=== PATIENT | male | born 1940 | race Caucasian/White ===

== ENCOUNTER 2017-03-31 09:19 | Emergency (ER) | payer MEDICARE ==
--- NOTE | 2017-03-31 10:15 | EDM.PDOC ---
ED HPI GENERAL MEDICAL PROBLEM - General Chief Complaint: Respiratory Problem Stated Complaint: COUGH/CHEST, NECK PAIN Time Seen by Provider: 03/31/17 09:55 Source of Information: Reports: Patient History Limitations: Reports: No Limitations - History of Present Illness INITIAL COMMENTS - FREE TEXT/NARRATIVE: 76-year-old male with a history of prostatic cancer has had a worsening cough, chest pain with coughing, starting to become productive with a small amount of hemoptysis over the past several days. Last night it hurt so bad he had trouble sleeping. He feels somewhat better this morning but it still hurts to breathe. He does not feel short of breath, no significant fevers, denies diaphoresis. The pain at times radiates to both posterior shoulders. Denies nausea or vomiting. He did not obtain an influenza vaccination this year. Onset: Gradual (Over the past several days) Quality: Reports: Ache, Stabbing Severity: Moderate Worsens with: Reports: Breathing, Other Associated Symptoms: Reports: Chest Pain, Cough, Other (Developed some hemoptysis this morning). Denies: Headaches, Shortness of Breath Anterior Chest Pain Score (Numeric/FACES): 6 - Related Data Allergies Allergy/AdvReac Type Severity Reaction Status Date / Time cimetidine [From Tagamet] Allergy Cannot Verified 03/31/17 09:35 Remember cimetidine HCl [From Tagamet] Allergy Cannot Verified 03/31/17 09:35 Remember Sulfa (Sulfonamide Allergy Swelling Verified 03/31/17 09:35 Antibiotics) sulfadiazine [Sulfadiazine] Allergy Cannot Verified 03/31/17 09:35 Remember Home Meds: Home Meds Blood Sugar Diagnostic [Contour] 1 strip WEEKLY 11/07/14 [History] Triamterene/Hydrochlorothiazid [Triamterene-HCTZ 37.5-25 MG] 1 dose PO DAILY [History] Calcium Carbonate [Calcium] 500 mg PO DAILY 03/31/17 [History] Cyanocobalamin (Vitamin B-12) [Vitamin B-12] 2,000 mcg PO DAILY 03/31/17 [ History] Enzalutamide [Xtandi] 4 tab PO BEDTIME 03/31/17 [History] Gabapentin [Neurontin] 100 mg PO TID 03/31/17 [History] atorvaSTATin [Lipitor] 20 mg PO BEDTIME 03/31/17 [History] oxyCODONE HCl/Acetaminophen [Percocet 5-325 mg Tablet] 1 - 2 tab PO Q6H [History] Past Medical History HEENT History: Reports: Cataract, Hard of Hearing, Impaired Vision Cardiovascular History: Reports: Afib, High Cholesterol, Hypertension Respiratory History: Reports: Other (See Below) Other Respiratory History: hx pnuemonia Gastrointestinal History: Reports: Other (See Below) Other Gastrointestinal History: reflux Genitourinary History: Reports: Other (See Below) Other Genitourinary History: prostate CA Musculoskeletal History: Reports: Back Pain, Chronic, Fracture Other Musculoskeletal History: fx l leg and wrist Endocrine/Metabolic History: Reports: Diabetes, Type II Oncologic (Cancer) History: Reports: Prostate - Infectious Disease History Infectious Disease History: Reports: Chicken Pox, Measles, Mumps, Shingles, Other (See Below) Other Infectious Disease History: Lymes disease - Past Surgical History GI Surgical History: Reports: Colostomy Social & Family History - Tobacco Use Smoking Status *Q: Never Smoker Second Hand Smoke Exposure: No - Caffeine Use Caffeine Use: Reports: Coffee, Tea - Recreational Drug Use Recreational Drug Use: No ED ROS GENERAL - Review of Systems Review Of Systems: See Below Constitutional: Reports: Chills. Denies: Fever HEENT: Denies: Throat Pain Respiratory: Reports: Cough, Sputum, Hemoptysis. Denies: Shortness of Breath Cardiovascular: Reports: Chest Pain GI/Abdominal: Denies: Abdominal Pain, Nausea, Vomiting : Reports: Other (History of prostate cancer but no current symptoms) Neurological: Denies: Headache Psychiatric: Reports: No Symptoms ED EXAM, GENERAL - Physical Exam Exam: See Below Exam Limited By: No Limitations General Appearance: Alert, No Apparent Distress Head: Atraumatic Neck: Normal Inspection Respiratory/Chest: No Respiratory Distress, Lungs Clear Cardiovascular: Regular Rate, Rhythm Neurological: Alert, Oriented Psychiatric: Normal Affect, Normal Mood Skin Exam: Warm, Dry Course - Vital Signs Last Recorded V/S: Last Vital Signs Temp 96.8 F 03/31/17 10:30 Pulse 72 03/31/17 10:30 Resp 18 03/31/17 10:30 BP 172/82 H 03/31/17 10:30 Pulse Ox 96 03/31/17 10:30 - Orders/Labs/Meds Orders: Active Orders 24 hr Category Date Time Status Chest 2V [CR] Routine Exams 03/31/17 10:10 Taken Labs: Laboratory Tests 03/31/17 03/31/17 Range/Units 10:22 10:22 WBC 4.0 L (4.5-11.0) K/uL RBC 4.77 (4.30-5.90) M/uL Hgb 15.0 (12.0-15.0) g/dL Hct 42.1 (40.0-54.0) % MCV 88 (80-98) fL MCH 31 (27-31) pg MCHC 36 (32-36) % Plt Count 110 L (150-400) K/uL Neut % (Auto) 73 H (36-66) % Lymph % (Auto) 11 L (24-44) % [place] % (Auto) 16 H (2-6) % Eos % (Auto) 0 L (2-4) % Baso % (Auto) 0 (0-1) % Sodium 138 L (140-148) mmol/L Potassium 3.7 (3.6-5.2) mmol/L Chloride 98 L (100-108) mmol/L Carbon Dioxide 31 (21-32) mmol/L Anion Gap 12.7 (5.0-14.0) mmol/L BUN 17 (7-18) mg/dL Creatinine 1.3 (0.8-1.3) mg/dL Est Cr Clr Drug Dosing 40.74 mL/min Estimated GFR (MDRD) 53 L (>60) Glucose 135 H (74-106) mg/dL Calcium 9.1 (8.5-10.1) mg/dL Troponin I 0.021 (0.000-0.056) ng/mL - Re-Assessments/Exams Free Text/Narrative Re-Assessment/Exam: 03/31/17 10:14 Influenza antigens, a two-view chest x-ray, CBC BMP and troponin were obtained. 03/31/17 10:43 Two-view chest x-ray shows no infiltrate, CBC shows a white count of 4000 and influenza A is positive. Patient already has OxyContin for pain but he is not taking any until his pain starts, so I encouraged him to take a dose before bedtime. It's too late to start Tamiflu. He can return if worsening such as increasing shortness of breath. 01/06/18 10:54 Chemistry panel and troponin were reassuring, troponin was normal. Departure - Departure Time of Disposition: 11:17 Disposition: Home, Self-Care 01 Condition: Good Clinical Impression: Influenza - Discharge Information Instructions: Influenza, Adult, [id number] Referrals: Nitin Arguello MD [Primary Care Provider] - Forms: ED Department Discharge Care Plan Goals: Continue your current medications, try your pain medication before bedtime and increase activity as tolerated. Return if worsening, especially difficulty breathing. Also consider rechecking in 3-4 days if not improving satisfactorily. - My Orders Last 24 Hours: My Active Orders 03/31/17 10:10 Chest 2V [CR] Routine - Assessment/Plan Last 24 Hours: My Active Orders 03/31/17 10:10 Chest 2V [CR] Routine
[2017-03-31 11:16] VITALS: BP 172/82
--- NOTE | 2017-04-02 09:52 | CR ---
Chest 2V HISTORY: Dyspnea COMPARISON: CT scan chest 01/12/2017. FINDINGS: Cardiac size and pulmonary vessels normal. There are no infiltrates or effusions. No pneumo thorax. Moderate kyphosis and degenerative change within the thoracic spine.
== END 2017-03-31 11:21 | disposition home or self-care (01) ==
LOC: JP.ED 09:19
DX: J10.1 Influenza due to other identified influenza virus with other respiratory manifestations (principal); I10 Essential (primary) hypertension; E78.00 Pure hypercholesterolemia, unspecified; E11.9 Type 2 diabetes mellitus without complications; Z88.2 Allergy status to sulfonamides; Z79.899 Other long term (current) drug therapy
CPT/HCPCS: 36415; 71046; 71046-26; 80048; 84484; 85025; 87804; 99283; 99284

== ENCOUNTER 2017-04-23 11:02 | Emergency (ER) | payer MEDICARE ==
[2017-04-23 11:17] VITALS: BP 151/82
--- NOTE | 2017-04-23 12:29 | EDM.PDOC ---
ED HPI GENERAL MEDICAL PROBLEM - General Chief Complaint: General Stated Complaint: DIRECT ADMIT FROM CLINIC Time Seen by Provider: 04/23/17 11:40 Source of Information: Reports: Patient, RN, RN Notes Reviewed History Limitations: Reports: No Limitations - History of Present Illness INITIAL COMMENTS - FREE TEXT/NARRATIVE: 76-year-old gentleman presents to the emergency department today for further evaluation, he has a known history of prostate cancer is currently receiving infusion of ZARXIO he received his first infusion today he did have some vague abdominal pain with this blood work was drawn at the same time which revealed a total WBC of 0.6 neutrophil 8%. Because of the extremely low neutrophil count oncology is asked for further evaluation in the emergency department he was sent here for further evaluation he did receive Neupogen prior to departure. At this time he feels all the symptoms have resolved he has no complaints has not had any fevers - Related Data Allergies Allergy/AdvReac Type Severity Reaction Status Date / Time cimetidine [From Tagamet] Allergy Cannot Verified 03/31/17 09:35 Remember cimetidine HCl [From Tagamet] Allergy Cannot Verified 03/31/17 09:35 Remember Sulfa (Sulfonamide Allergy Swelling Verified 03/31/17 09:35 Antibiotics) sulfadiazine [Sulfadiazine] Allergy Cannot Verified 03/31/17 09:35 Remember Home Meds: Home Meds Blood Sugar Diagnostic [Contour] 1 strip WEEKLY 11/07/14 [History] Triamterene/Hydrochlorothiazid [Triamterene-HCTZ 37.5-25 MG] 1 dose PO DAILY [History] Calcium Carbonate [Calcium] 500 mg PO DAILY 03/31/17 [History] Cyanocobalamin (Vitamin B-12) [Vitamin B-12] 2,000 mcg PO DAILY 03/31/17 [ History] Enzalutamide [Xtandi] 4 tab PO BEDTIME 03/31/17 [History] Gabapentin [Neurontin] 100 mg PO TID 03/31/17 [History] atorvaSTATin [Lipitor] 20 mg PO BEDTIME 03/31/17 [History] oxyCODONE HCl/Acetaminophen [Percocet 5-325 mg Tablet] 1 - 2 tab PO Q6H [History] Leuprolide [Leuprolide Depot 6-Month] 45 mg 04/23/17 [History] Past Medical History HEENT History: Reports: Cataract, Hard of Hearing, Impaired Vision Cardiovascular History: Reports: Afib, High Cholesterol, Hypertension Respiratory History: Reports: Other (See Below) Other Respiratory History: hx pnuemonia Gastrointestinal History: Reports: Other (See Below) Other Gastrointestinal History: reflux Genitourinary History: Reports: Other (See Below) Other Genitourinary History: prostate CA Musculoskeletal History: Reports: Back Pain, Chronic, Fracture Other Musculoskeletal History: fx l leg and wrist Endocrine/Metabolic History: Reports: Diabetes, Type II Oncologic (Cancer) History: Reports: Prostate - Infectious Disease History Infectious Disease History: Reports: Chicken Pox, Measles, Mumps, Shingles, Other (See Below) Other Infectious Disease History: Lymes disease - Past Surgical History GI Surgical History: Reports: Colostomy Social & Family History - Tobacco Use Smoking Status *Q: Never Smoker Second Hand Smoke Exposure: No - Caffeine Use Caffeine Use: Reports: Coffee - Recreational Drug Use Recreational Drug Use: No ED ROS GENERAL - Review of Systems Review Of Systems: See Below Constitutional: Denies: Fever, Chills HEENT: Reports: No Symptoms Respiratory: Reports: No Symptoms Cardiovascular: Reports: No Symptoms GI/Abdominal: Reports: Abdominal Pain (Now resolved) : Reports: No Symptoms Musculoskeletal: Reports: No Symptoms Skin: Reports: No Symptoms ED EXAM, GENERAL - Physical Exam Exam: See Below Free Text/Narrative:: General: Male, not in any distress, alert and oriented x3 HEENT: head is atraumatic normocephalic, eyes pupils equal round reactive to light, sclera clear no conjunctivitis appreciated. Ears tympanic membranes clear and murcia landmarks and light reflex are present bilaterally canals are clear. Nose no septal deviation, nares are clear, no blood present. Mouth mucosa is moist and pink no erythema or exudate noted in soft palate, tongue is midline uvula is midline, dentition is intact. Neck: Supple no thyromegaly no tracheal deviation. Nodes: Cervical nodes subclavicular nodes nontender no palpable lymphadenopathy noted. Lungs: clear to auscultation bilaterally with symmetrical respirations, no adventitious noise appreciated. CV: Regular rate and rhythm S1 and S2 appreciated no murmurs rubs or gallops noted. Abdomen: Soft, nontender, no palpable masses or organomegaly appreciated, no distention no guarding bowel sounds are present, . Neuro: Cranial nerves II through XII grossly intact Skin: Warm and dry, intact Extremities: No lower extremity edema appreciated, Course - Vital Signs Last Recorded V/S: Last Vital Signs Temp 98.7 F 04/23/17 11:17 Pulse 117 H 04/23/17 11:17 Resp 18 04/23/17 11:17 BP 151/82 H 04/23/17 11:17 Pulse Ox 96 04/23/17 11:17 Departure - Departure Time of Disposition: 12:28 Disposition: Home, Self-Care 01 Condition: Fair Clinical Impression: Neutropenia Qualifiers: Neutropenia type: secondary to cancer chemotherapy Qualified Code(s): D70.1 - Agranulocytosis secondary to cancer chemotherapy; T45.1X5A - Adverse effect of antineoplastic and immunosuppressive drugs, initial encounter; T45.1X5A - Adverse effect of antineoplastic and immunosuppressive drugs, initial encounter - Discharge Information Referrals: Nitin Arguello MD [Primary Care Provider] - Additional Instructions: Please keep your follow-up appointments with oncology, please return to the emergency department with a fever or worsening of symptoms - Assessment/Plan Plan: Assessment Acuity = acute Site and laterality = neutropenia complicated patient with known history of prostate cancer Etiology = probably related to ongoing disease and chemotherapy Manifestations = none Location of injury = Home Lab values = none Plan I did review his lab work from the clinic with him today he has no complaints, discussed case with hospitalist felt it is better to do watchful waiting at home to reduce the risk of infection rather than being in the hospital as well as exposure to antibiotics without fever therefore plan is to discharge to home keep his follow-up appointment with oncology. This note was dictated using [employer] voice recognition software please call with any questions on syntax or ho.
== END 2017-04-23 12:43 | disposition home or self-care (01) ==
LOC: JP.ED 11:02
DX: D70.1 Agranulocytosis secondary to cancer chemotherapy (principal); T45.1X5A Adverse effect of antineoplastic and immunosuppressive drugs, initial encounter; I10 Essential (primary) hypertension; E11.9 Type 2 diabetes mellitus without complications; E78.00 Pure hypercholesterolemia, unspecified; I48.91 Unspecified atrial fibrillation; Z88.2 Allergy status to sulfonamides; Z88.8 Allergy status to other drugs, medicaments and biological substances; Z79.899 Other long term (current) drug therapy
CPT/HCPCS: 99284

== ENCOUNTER 2018-08-06 19:48 | Emergency (ER) | payer MEDICARE ==
[2018-08-06] MEDS ORDERED: Ondansetron 4 MG/2 ML SDV IVPUSH ONE (20:56)
--- NOTE | 2018-08-06 20:57 | EDM.PDOC ---
ED HPI GENERAL MEDICAL PROBLEM - General Chief Complaint: Gastrointestinal Problem Stated Complaint: ABD PAIN Time Seen by Provider: 08/06/18 20:55 Source of Information: Reports: Patient History Limitations: Reports: No Limitations - History of Present Illness INITIAL COMMENTS - FREE TEXT/NARRATIVE: pt arrived stating he has been ill for the past 3 days. He has had normal bms. He notices that his urine is very dark. He has pain in the lower abdoman, more on the rt . Onset: Other (started 3 days ago. ) Duration: Hour(s): Location: Reports: Abdomen Associated Symptoms: Reports: Loss of Appetite, Nausea/Vomiting Treatments TELEVISION CAMERAMAN: Reports: Cervical Collar lower abd Pain Score (Numeric/FACES): 10 - Related Data Allergies Allergy/AdvReac Type Severity Reaction Status Date / Time cimetidine [From Tagamet] Allergy Cannot Verified 08/06/18 20:10 Remember cimetidine HCl [From Tagamet] Allergy Cannot Verified 08/06/18 20:10 Remember Sulfa (Sulfonamide Allergy Swelling Verified 08/06/18 20:10 Antibiotics) sulfadiazine [Sulfadiazine] Allergy Cannot Verified 08/06/18 20:10 Remember Home Meds: Home Meds oxyCODONE HCl/Acetaminophen [Percocet 5-325 mg Tablet] 1 - 2 tab PO Q6H [History] Leuprolide [Leuprolide Depot 6-Month] 45 mg IM Q180D 04/23/17 [History] Pantoprazole Sodium [Protonix] 20 mg PO DAILY 08/06/18 [History] Triamterene/Hydrochlorothiazid [Triamterene-HCTZ 37.5-25 MG] 1 each PO DAILY [History] predniSONE [Prednisone] 1 tab PO DAILY 08/06/18 [History] Past Medical History HEENT History: Reports: Cataract, Hard of Hearing, Impaired Vision Cardiovascular History: Reports: Afib, High Cholesterol, Hypertension Respiratory History: Reports: Other (See Below) Other Respiratory History: hx pnuemonia Gastrointestinal History: Reports: GERD Other Gastrointestinal History: reflux Genitourinary History: Reports: Prostate Disorder, Renal Calculus Other Genitourinary History: prostate CA Musculoskeletal History: Reports: Back Pain, Chronic, Fracture Other Musculoskeletal History: fx l leg and wrist Endocrine/Metabolic History: Reports: Diabetes, Type II Oncologic (Cancer) History: Reports: Prostate - Infectious Disease History Infectious Disease History: Reports: Chicken Pox, Measles, Mumps, Shingles, Other (See Below) Other Infectious Disease History: Lymes disease - Past Surgical History GI Surgical History: Reports: Colonoscopy Musculoskeletal Surgical History: Reports: Other (See Below) Other Musculoskeletal Surgeries/Procedures:: wrist surgery Social & Family History - Tobacco Use Smoking Status *Q: Never Smoker - Caffeine Use Caffeine Use: Reports: Coffee - Recreational Drug Use Recreational Drug Use: No ED ROS GENERAL - Review of Systems Review Of Systems: See Below Constitutional: Reports: Malaise, Decreased Appetite HEENT: Reports: No Symptoms Respiratory: Reports: No Symptoms Cardiovascular: Reports: No Symptoms Endocrine: Reports: No Symptoms GI/Abdominal: Reports: Nausea, Vomiting, Other (pain in the rt abdoman. ) Musculoskeletal: Reports: No Symptoms Skin: Reports: No Symptoms ED EXAM, GI/ABD - Physical Exam Exam: See Below Text/Narrative:: pt arrived with pain in the rt lower abdoman. He has noted that his urine looked dark or he had blood in the urien. Exam Limited By: No Limitations General Appearance: Alert, Moderate Distress Ears: Normal TMs Nose: Normal Inspection Throat/Mouth: Normal Inspection Head: Atraumatic Neck: Normal Inspection Respiratory/Chest: No Respiratory Distress Cardiovascular: Regular Rate, Rhythm GI/Abdominal Exam: Soft, Tender, Other (pt has definite tenderness in the rt lower abdoman. ) (Male) Exam: Other ( dark looking urine or blood in the urine. ) Rectal (Males) Exam: Deferred Back Exam: Normal Inspection Extremities: Normal Inspection Neurological: Alert, Oriented, Normal Cognition Psychiatric: Normal Affect Course - Vital Signs Last Recorded V/S: Last Vital Signs Temp 36.2 C 08/06/18 20:07 Pulse 78 08/06/18 22:06 Resp 18 08/06/18 22:06 BP 156/67 H 08/06/18 22:06 Pulse Ox 100 08/06/18 22:06 - Orders/Labs/Meds Orders: Active Orders 24 hr Category Date Time Status CULTURE URINE [RM] Stat Lab 08/06/18 22:40 Received Iopamidol [Isovue-300 (61%)] Med 08/06/18 21:45 Active 124 ml IV . DIRECTED Sodium Chloride 0.9% [Normal Saline] 1,000 ml Med 08/06/18 21:00 Active IV ASDIRECTED Sodium Chloride 0.9% [Normal Saline] 1,000 ml Med 08/06/18 22:00 Active IV ASDIRECTED Sodium Chloride 0.9% [Normal Saline] 80 ml Med 08/06/18 21:45 Active IV ASDIRECTED Sodium Chloride 0.9% [Saline Flush] Med 08/06/18 21:36 Active 10 ml FLUSH ASDIRECTED PRN Medication Orders Sodium Chloride (Normal Saline) 1,000 mls @ 999 mls/hr IV ASDIRECTED JEMMA Last Admin: 08/06/18 21:10 Dose: 999 mls/hr Sodium Chloride (Normal Saline) 80 mls @ 3 mls/sec IV ASDIRECTED JEMMA Last Admin: 08/06/18 21:54 Dose: 3 mls/sec Sodium Chloride (Normal Saline) 1,000 mls @ 500 mls/hr IV ASDIRECTED JEMMA Iopamidol (Isovue-300 (61%)) 124 ml IV . DIRECTED JEMMA Last Admin: 08/06/18 21:54 Dose: 124 ml Sodium Chloride (Saline Flush) 10 ml FLUSH ASDIRECTED PRN PRN Reason: Keep Vein Open Last Admin: 08/06/18 21:54 Dose: 10 ml Labs: Laboratory Tests 08/06/18 08/06/18 08/06/18 Range/Units 20:52 20:52 22:04 WBC 11.9 H (4.5-11.0) K/uL RBC 3.60 L (4.30-5.90) M/uL Hgb 11.2 L D (12.0-15.0) g/dL Hct 34.6 L (40.0-54.0) % MCV 96 (80-98) fL MCH 31 (27-31) pg MCHC 32 (32-36) % Plt Count 110 L (150-400) K/uL Add Manual Diff Yes Neutrophils % (Manual) 82 H (36-66) % Band Neutrophils % 8 (5-11) % Lymphocytes % (Manual) 3 L (24-44) % Monocytes % (Manual) 7 H (2-6) % Sodium 136 L (140-148) mmol/L Potassium 3.8 (3.6-5.2) mmol/L Chloride 98 L (100-108) mmol/L Carbon Dioxide 31 (21-32) mmol/L Anion Gap 10.8 (5.0-14.0) mmol/L BUN 22 H (7-18) mg/dL Creatinine 1.3 (0.8-1.3) mg/dL Est Cr Clr Drug Dosing 40.08 mL/min Estimated GFR (MDRD) 53 L (>60) Glucose 174 H (74-106) mg/dL Calcium 9.0 (8.5-10.1) mg/dL Total Bilirubin 0.4 (0.2-1.0) mg/dL AST 16 (15-37) U/L ALT 17 (12-78) U/L Alkaline Phosphatase 101 (46-116) U/L C-Reactive Protein 0.86 H (0.0-0.3) mg/dL Total Protein 6.1 L (6.4-8.2) g/dL Albumin 3.5 (3.4-5.0) g/dL Globulin 2.6 (2.3-3.5) g/dL Albumin/Globulin Ratio 1.3 (1.2-2.2) Urine Color Yellow Urine Appearance Cloudy Urine pH 5.0 (4.5-8.0) Ur Specific [place] 1.010 (1.008-1.030) Urine Protein 30 H (NEGATIVE) mg/dL Urine Glucose (UA) Normal (NEGATIVE) mg/dL Urine Ketones Negative (NEGATIVE) mg/dL Urine Occult Blood Large (NEGATIVE) Urine Nitrite Negative (NEGAITVE) Urine Bilirubin Negative (NEGATIVE) Urine Urobilinogen Normal (NORMAL) mg/dL Ur Leukocyte Esterase Negative (NEGATIVE) Urine RBC Packed H (0-5) Urine WBC 0-5 (0-5) Ur Epithelial Cells Rare Amorphous Sediment Not seen Urine Bacteria Rare Urine Mucus Not seen Meds: Medications Generic Name Dose Route Start Last Admin Trade Name Freq PRN Reason Stop Dose Admin Sodium Chloride 1,000 mls @ 999 mls/hr 08/06/18 21:00 08/06/18 21:10 Normal Saline IV 999 mls/hr ASDIRECTED JEMMA Administration Sodium Chloride 80 mls @ 3 mls/sec 08/06/18 21:45 08/06/18 21:54 Normal Saline IV 3 mls/sec ASDIRECTED JEMMA Administration Sodium Chloride 1,000 mls @ 500 mls/hr 08/06/18 22:00 Normal Saline IV ASDIRECTED JEMMA Iopamidol 124 ml 08/06/18 21:45 08/06/18 21:54 Isovue-300 (61%) IV 124 ml . DIRECTED JEMMA Administration Sodium Chloride 10 ml 08/06/18 21:36 08/06/18 21:54 Saline Flush FLUSH 10 ml ASDIRECTED PRN Administration Keep Vein Open Discontinued Medications Generic Name Dose Route Start Last Admin Trade Name Nano PRN Reason Stop Dose Admin Ciprofloxacin 250 mg 08/06/18 22:57 Ciprofloxacin Hcl PO 08/06/18 22:58 ONETIME ONE Ondansetron HCl 4 mg 08/06/18 20:56 08/06/18 21:11 Zofran IVPUSH 08/06/18 20:57 4 mg ONETIME ONE Administration - Re-Assessments/Exams Free Text/Narrative Re-Assessment/Exam: 08/06/18 22:50 pt has hematuria. A culture is pending. He did not have alot of bacteria in the urine. A noddle is present in the posterior aspect of the bladder possible mucosal neoplasm. 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 Pt does need to see urology. Departure - Departure Time of Disposition: 22:54 Disposition: Home, Self-Care 01 Condition: Fair Clinical Impression: Hematuria, Right hip pain, Mass of urinary bladder - Discharge Information Referrals: Nitin Arguello MD [Primary Care Provider] - Forms: ED Department Discharge Care Plan Goals: , zoforan 4 mg subling q6h prn for nausea. appt with Dr Arguello in next 2 days, Pt needs referal to [place] where his urologist is, cipro 250 bid - My Orders Last 24 Hours: My Active Orders 08/06/18 21:00 Sodium Chloride 0.9% [Normal Saline] 1,000 ml IV ASDIRECTED 08/06/18 21:36 Sodium Chloride 0.9% [Saline Flush] 10 ml FLUSH ASDIRECTED PRN 08/06/18 21:45 Iopamidol [Isovue-300 (61%)] 124 ml IV . DIRECTED Sodium Chloride 0.9% [Normal Saline] 80 ml IV ASDIRECTED 08/06/18 22:00 Sodium Chloride 0.9% [Normal Saline] 1,000 ml IV ASDIRECTED 08/06/18 22:40 CULTURE URINE [RM] Stat - Assessment/Plan Last 24 Hours: My Active Orders 08/06/18 21:00 Sodium Chloride 0.9% [Normal Saline] 1,000 ml IV ASDIRECTED 08/06/18 21:36 Sodium Chloride 0.9% [Saline Flush] 10 ml FLUSH ASDIRECTED PRN 08/06/18 21:45 Iopamidol [Isovue-300 (61%)] 124 ml IV . DIRECTED Sodium Chloride 0.9% [Normal Saline] 80 ml IV ASDIRECTED 08/06/18 22:00 Sodium Chloride 0.9% [Normal Saline] 1,000 ml IV ASDIRECTED 08/06/18 22:40 CULTURE URINE [RM] Stat
[2018-08-06] MEDS ORDERED: Sodium Chloride 0.9% 1,000 ML IV SCH ×2 (21:00→22:00)
[2018-08-06] MEDS ORDERED: Sodium Chloride 0.9% 10 ML Syringe FLUSH PRN (21:36)
[2018-08-06] MEDS ORDERED: Iopamidol 612 MG/ML 150 ML Bottle IV SCH (21:45)
[2018-08-06] MEDS ORDERED: Sodium Chloride 0.9% 80 ML IV SCH (21:45)
[2018-08-06 22:07] VITALS: BP 156/67
--- NOTE | 2018-08-06 22:23 | CRLCT ---
INDICATION: Right lower quad abdominal pain TECHNIQUE: CT Abdomen and pelvis with i.v. contrast. Coronal and sagittal reformats were obtained. CONTRAST: 124 mL Isovue 300 COMPARISON: None FINDINGS: Lower chest: Unremarkable. Liver: There is a lobulated cyst in the left liver dome measuring 3.2 cm. Spleen: Unremarkable. Pancreas: Unremarkable. Gallbladder: Unremarkable. Kidney: enhancement of the right ureteral urothelium is present with focal thickening of the urothelium seen in mid ureter on image 75. Both kidneys are normal in enhancement. Adrenal: Unremarkable. Bowel: Small sliding type gastric hiatal hernia (type IV) is present. The appendix is normal in appearance and size. Vascular: Unremarkable. Lymph: Unremarkable. Peritoneum: Unremarkable. No pneumoperitoneum is seen. No significant ascites is noted. Pelvis: A round hyperdense nodule is present in the left posterior aspect of the bladder base measuring 1 cm, near the left ureterovesicular junction. An adjacent bladder diverticulum is present measuring 2.8 cm Soft tissue: Unremarkable. Bone: There is a lucent lesion with nodular peripheral sclerosis seen in the left acetabular roof measuring 4.5 x 2.9 cm. IMPRESSIONS: 1. A round hyperdense nodule is present in the left posterior aspect of the bladder base measuring 1 cm, near the left ureterovesicular junction. An adjacent bladder diverticulum is present measuring 2.8 cm. Further evaluation with cystoscopy is recommended to exclude a mucosal neoplasm. 2. Enhancement of the right ureteral urothelium is present with focal thickening of the urothelium seen in mid ureter on image 75. Assessment with retrograde pyelogram also recommended to exclude a mucosal neoplasm or stricture. Urinalysis is also recommended to exclude an ascending urinary tract infection. 3. There is a lucent lesion with nodular peripheral sclerosis seen in the left acetabular roof measuring 4.5 x 2.9 cm. Characterization of bone scan or MRI recommended, especially if the patient has a history of primary malignancy. Dictated by Osman Simpson MD @ 08/06/2018 10:21:46 PM Please note that all CT scans at this facility use dose modulation, iterative reconstruction, and/or weight-based dosing when appropriate to reduce radiation dose to as low as reasonably achievable. Dictated by: Osman Simpson MD @ 08/06/2018 22:22:00 (Electronically Signed)
[2018-08-06] MEDS ORDERED: Ciprofloxacin 500 MG Tab PO ONE (22:57)
== END 2018-08-06 23:28 | disposition home or self-care (01) ==
LOC: JP.ED 19:48
DX: N32.9 Bladder disorder, unspecified (principal); R31.9 Hematuria, unspecified; M25.551 Pain in right hip; I48.91 Unspecified atrial fibrillation; E78.00 Pure hypercholesterolemia, unspecified; I10 Essential (primary) hypertension; E11.9 Type 2 diabetes mellitus without complications; Z88.8 Allergy status to other drugs, medicaments and biological substances; Z88.2 Allergy status to sulfonamides; Z79.899 Other long term (current) drug therapy
CPT/HCPCS: 36415; 74177; 80053; 81001; 85025; 86140; 87086; 96361; 96374; 99284; A9270; J2405; J7030

== ENCOUNTER 2019-08-08 14:56 | Emergency (ER) | payer MEDICARE ==
[2019-08-08 15:03] VITALS: BP 132/85; PULSE 107
--- NOTE | 2019-08-08 16:18 | EDM.PDOCBH ---
ED HPI GENERAL MEDICAL PROBLEM - General Chief Complaint: Neuro Symptoms/Deficits Stated Complaint: [facility] Time Seen by Provider: 08/08/19 16:00 Source of Information: Reports: Patient, EMS, Old Records, Other (criminal justice social worker) History Limitations: Reports: No Limitations - History of Present Illness INITIAL COMMENTS - FREE TEXT/NARRATIVE: 78 yo male is sent into the ER by police via EMS for ? confusion. They said he was stopping cars to try to give people money as payment for last night's sex libertarian. Has a criminal justice social worker. Lives alone. Has a home health worker. Does have a doctor. Vitals stable per EMS. No issues noted recently by home health. Onset: Today Onset Date: 08/08/19 Duration: Hour(s): Location: Reports: Head (?) Quality: Reports: Other (no pain) Severity: Mild (confusion) Improves with: Reports: Other (? time, is better here now in the ER.) Worsens with: Reports: Other (Unknown) Context: Reports: Other (See HPI) Associated Symptoms: Reports: No Other Symptoms Treatments STITCH WHEELER: Reports: Other (see below) (none) Left Knee Pain Score (Numeric/FACES): 2 - Related Data Allergies Allergy/AdvReac Type Severity Reaction Status Date / Time cimetidine [From Tagamet] Allergy Cannot Verified 08/08/19 15:07 Remember cimetidine HCl [From Tagamet] Allergy Cannot Verified 08/08/19 15:07 Remember Sulfa (Sulfonamide Allergy Swelling Verified 08/08/19 15:07 Antibiotics) sulfadiazine [Sulfadiazine] Allergy Cannot Verified 08/08/19 15:07 Remember Home Meds: Home Meds oxyCODONE HCl/Acetaminophen [Percocet 5-325 mg Tablet] 1 - 2 tab PO Q6H [History] Leuprolide [Leuprolide [place] 6-Month] 45 mg IM Q180D 04/23/17 [History] Pantoprazole Sodium [Protonix] 20 mg PO DAILY 08/06/18 [History] Triamterene/Hydrochlorothiazid [Triamterene-HCTZ 37.5-25 MG] 1 each PO DAILY [History] metFORMIN [Glucophage XR] 500 mg PO DAILY 08/08/19 [History] Past Medical History HEENT History: Reports: Cataract, Hard of Hearing, Impaired Vision Cardiovascular History: Reports: Afib, High Cholesterol, Hypertension Respiratory History: Reports: Other (See Below) Other Respiratory History: hx pnuemonia Gastrointestinal History: Reports: GERD Other Gastrointestinal History: reflux Genitourinary History: Reports: Prostate Disorder, Renal Calculus Other Genitourinary History: prostate CA Musculoskeletal History: Reports: Back Pain, Chronic, Fracture Other Musculoskeletal History: fx l leg and wrist Neurological History: Reports: Migraines Endocrine/Metabolic History: Reports: Diabetes, Type II, Obesity/BMI 30+ Oncologic (Cancer) History: Reports: Prostate - Infectious Disease History Infectious Disease History: Reports: Chicken Pox, Measles, Mumps, Shingles, Other (See Below) Other Infectious Disease History: Lymes disease - Past Surgical History GI Surgical History: Reports: Colonoscopy Endocrine Surgical History: Reports: None Neurological Surgical History: Reports: None Musculoskeletal Surgical History: Reports: Other (See Below) Other Musculoskeletal Surgeries/Procedures:: wrist surgery Social & Family History - Tobacco Use Smoking Status *Q: Never Smoker Second Hand Smoke Exposure: No - Caffeine Use Caffeine Use: Reports: Coffee - Recreational Drug Use Recreational Drug Use: No ED ROS GENERAL - Review of Systems Review Of Systems: See Below Constitutional: Reports: No Symptoms HEENT: Reports: Hearing Loss (has hearing aid) Respiratory: Reports: No Symptoms Cardiovascular: Reports: No Symptoms GI/Abdominal: Reports: Nausea (intermittent, ? duration). Denies: Vomiting : Reports: No Symptoms Musculoskeletal: Reports: No Symptoms Skin: Reports: No Symptoms Neurological: Reports: Confusion (? earlier today) Psychiatric: Reports: No Symptoms ED EXAM, BEHAVIORAL HEALTH - Physical Exam Exam: See Below Exam Limited By: No Limitations General Appearance: Alert, WD/WN, No Apparent Distress Eye Exam: Bilateral Eye: Normal Inspection (eyeglasses) Ears: Normal External Exam, Normal Canal, Hearing Grossly Normal, Normal TMs, Other (L ear hearing aid) Nose: Normal Inspection, No Blood Throat/Mouth: Normal Inspection, Normal Lips, Normal Oropharynx, Normal Voice, No Airway Compromise Head: Atraumatic, Normocephalic Neck: Normal Inspection Respiratory/Chest: No Respiratory Distress, Lungs Clear, Normal Breath Sounds, No Accessory Muscle Use Cardiovascular: Regular Rate, Rhythm, No Edema GI/Abdominal: Normal Bowel Sounds, Soft, Non-Tender, No Distention Back Exam: Normal Inspection. No: CVA Tenderness (R), CVA Tenderness (L) Extremities: Normal Inspection, Normal Range of Motion, Non-Tender, No Pedal Edema Neurological: Alert, Normal Mood/Affect, CN II-XII Intact, Normal Cognition, No Motor/Sensory Deficits, Oriented x 3 Psychiatric: Alert, Normal Affect, Normal Cognition, Normal Mood, Oriented Skin Exam: Warm, Dry, Intact, Normal color, No rash COURSE, BEHAVIORAL HEALTH COMP - Course Vital Signs: Last Vital Signs Temp 35.6 C L 08/08/19 15:14 Pulse 107 H 08/08/19 15:14 Resp 16 08/08/19 15:14 BP 132/85 08/08/19 15:14 Pulse Ox 97 08/08/19 15:14 Orders, Labs, Meds: Laboratory Tests 08/08/19 08/08/19 08/08/19 Range/Units 15:30 15:30 15:54 WBC 4.6 (4.5-11.0) K/uL RBC 3.88 L (4.30-5.90) M/uL Hgb 10.3 L (12.0-15.0) g/dL Hct 32.9 L (40.0-54.0) % MCV 85 (80-98) fL MCH 27 (27-31) pg MCHC 31 L (32-36) % Plt Count 114 L (150-400) K/uL Sodium 138 L (140-148) mmol/L Potassium 3.5 L (3.6-5.2) mmol/L Chloride 101 (100-108) mmol/L Carbon Dioxide 26 (21-32) mmol/L Anion Gap 14.5 H (5.0-14.0) mmol/L BUN 17 (7-18) mg/dL Creatinine 1.7 H (0.8-1.3) mg/dL Est Cr Clr Drug Dosing 30.15 mL/min Estimated GFR (MDRD) 39 L (>60) Glucose 164 H (74-106) mg/dL Calcium 10.2 H (8.5-10.1) mg/dL Urine Color Yellow (YELLOW) Urine Appearance Clear (CLEAR) Urine pH 5.5 (5.0-8.0) Ur Specific [place] 1.025 (1.008-1.030) Urine Protein Negative (NEGATIVE) mg/dL Urine Glucose (UA) Negative (NEGATIVE) mg/dL Urine Ketones Negative (NEGATIVE) mg/dL Urine Occult Blood Negative (NEGATIVE) Urine Nitrite Negative (NEGATIVE) Urine Bilirubin Negative (NEGATIVE) Urine Urobilinogen 0.2 (0.2-1.0) EU/dL Ur Leukocyte Esterase Negative (NEGATIVE) Urine RBC 0-5 (0-5) Urine WBC 0-5 (0-5) Ur Epithelial Cells Rare Amorphous Sediment Not seen Urine Bacteria Not seen Urine Mucus Not seen Urine Opiates Screen (NEGATIVE) Ur Oxycodone Screen (NEGATIVE) Urine Methadone Screen (NEGATIVE) Ur Propoxyphene Screen (NEGATIVE) Ur Barbiturates Screen (NEGATIVE) Ur Tricyclics Screen (NEGATIVE) Ur Phencyclidine Scrn (NEGATIVE) Ur Amphetamine Screen (NEGATIVE) U Methamphetamines Scrn (NEGATIVE) Urine MDMA Screen (NEGATIVE) U Benzodiazepines Scrn (NEGATIVE) U Cocaine Metab Screen (NEGATIVE) U Marijuana (THC) Screen (NEGATIVE) 08/08/19 Range/Units 15:54 WBC (4.5-11.0) K/uL RBC (4.30-5.90) M/uL Hgb (12.0-15.0) g/dL Hct (40.0-54.0) % MCV (80-98) fL MCH (27-31) pg MCHC (32-36) % Plt Count (150-400) K/uL Sodium (140-148) mmol/L Potassium (3.6-5.2) mmol/L Chloride (100-108) mmol/L Carbon Dioxide (21-32) mmol/L Anion Gap (5.0-14.0) mmol/L BUN (7-18) mg/dL Creatinine (0.8-1.3) mg/dL Est Cr Clr Drug Dosing mL/min Estimated GFR (MDRD) (>60) Glucose (74-106) mg/dL Calcium (8.5-10.1) mg/dL Urine Color (YELLOW) Urine Appearance (CLEAR) Urine pH (5.0-8.0) Ur Specific [place] (1.008-1.030) Urine Protein (NEGATIVE) mg/dL Urine Glucose (UA) (NEGATIVE) mg/dL Urine Ketones (NEGATIVE) mg/dL Urine Occult Blood (NEGATIVE) Urine Nitrite (NEGATIVE) Urine Bilirubin (NEGATIVE) Urine Urobilinogen (0.2-1.0) EU/dL Ur Leukocyte Esterase (NEGATIVE) Urine RBC (0-5) Urine WBC (0-5) Ur Epithelial Cells Amorphous Sediment Urine Bacteria Urine Mucus Urine Opiates Screen Negative (NEGATIVE) Ur Oxycodone Screen Presumptive positive H (NEGATIVE) Urine Methadone Screen Negative (NEGATIVE) Ur Propoxyphene Screen Negative (NEGATIVE) Ur Barbiturates Screen Negative (NEGATIVE) Ur Tricyclics Screen Negative (NEGATIVE) Ur Phencyclidine Scrn Negative (NEGATIVE) Ur Amphetamine Screen Negative (NEGATIVE) U Methamphetamines Scrn Negative (NEGATIVE) Urine MDMA Screen Negative (NEGATIVE) U Benzodiazepines Scrn Negative (NEGATIVE) U Cocaine Metab Screen Negative (NEGATIVE) U Marijuana (THC) Screen Negative (NEGATIVE) Departure - Departure Time of Disposition: 16:18 Disposition: Home, Self-Care 01 Condition: Fair Clinical Impression: Confusion, hx of, without neuro findings, Mild anemia - Discharge Information *PRESCRIPTION DRUG MONITORING PROGRAM REVIEWED*: Not Applicable *COPY OF PRESCRIPTION DRUG MONITORING REPORT IN PATIENT DERICK: Not Applicable Referrals: Nitin Arguello MD [Primary Care Provider] - Forms: ED Department Discharge Additional Instructions: Take your medications as prescribed. See Dr. Arguello for recheck within the week. Return as needed. Sepsis Event Note - Evaluation Sepsis Screening Result: No Definite Risk - Focused Exam Vital Signs: Vital Signs Temp Pulse Resp BP Pulse Ox 08/08/19 15:14 35.6 C L 107 H 16 132/85 97 08/08/19 15:02 35.6 C L 107 H 16 132/85 97 Date Exam was Performed: 08/08/19 Time Exam was Performed: 16:20
== END 2019-08-08 16:29 | disposition home or self-care (01) ==
LOC: JP.ED 14:56
DX: R41.0 Disorientation, unspecified (principal); D64.9 Anemia, unspecified; E78.00 Pure hypercholesterolemia, unspecified; I10 Essential (primary) hypertension; I48.91 Unspecified atrial fibrillation; K21.9 Gastro-esophageal reflux disease without esophagitis; E11.9 Type 2 diabetes mellitus without complications; E66.9 Obesity, unspecified; Z68.30 Body mass index [BMI] 30.0-30.9, adult; Z88.8 Allergy status to other drugs, medicaments and biological substances; Z88.2 Allergy status to sulfonamides; Z79.899 Other long term (current) drug therapy; Z79.84 Long term (current) use of oral hypoglycemic drugs
CPT/HCPCS: 36415; 80048; 80305-QW; 81001; 85027; 99282; 99285

== ENCOUNTER 2019-09-17 14:21 | Emergency (ER) | payer MEDICARE ==
--- NOTE | 2019-09-17 14:57 | EDM.PDOC ---
ED HPI GENERAL MEDICAL PROBLEM - General Chief Complaint: General Stated Complaint: ABD PAIN,SHORTNES OF BREATH Time Seen by Provider: 09/17/19 15:15 Source of Information: Reports: Patient History Limitations: Reports: No Limitations - History of Present Illness INITIAL COMMENTS - FREE TEXT/NARRATIVE: The patient presents with multiple complaints. When I ask him why he is in the emergency department the first thing he states is that he is short of breath and has a tough time getting his air today. Does not complain of chest pain Does have dyspnea on exertion and also paroxysmal nocturnal dyspnea. His legs have been swollen at the end of the day. Complains of cough productive of white phlegm. States he feels feverish and has had chills but has not actually measured his temperature with thermometer. Complains of bilateral low abdominal pain which is "shooting" it occurs intermittently. States he has had vomiting and that he "gets sick a lot" states he can't eat much anymore and can't get a hamburger down. He last vomited yesterday. States when he does vomit his abdominal pain lessens. No blood in his vomitus. Complains of a dry throat. - Related Data Allergies Allergy/AdvReac Type Severity Reaction Status Date / Time cimetidine [From Tagamet] Allergy Cannot Verified 08/08/19 15:07 Remember cimetidine HCl [From Tagamet] Allergy Cannot Verified 08/08/19 15:07 Remember Sulfa (Sulfonamide Allergy Swelling Verified 08/08/19 15:07 Antibiotics) sulfadiazine [Sulfadiazine] Allergy Cannot Verified 08/08/19 15:07 Remember Home Meds: Home Meds oxyCODONE HCl/Acetaminophen [Percocet 5-325 mg Tablet] 1 - 2 tab PO Q6H 03/31/17 [History] Pantoprazole Sodium [Protonix] 20 mg PO DAILY 08/06/18 [History] Triamterene/Hydrochlorothiazid [Triamterene-HCTZ 37.5-25 MG] 1 each PO DAILY 08/06/18 [History] metFORMIN [Glucophage XR] 500 mg PO DAILY 08/08/19 [History] Prochlorperazine Maleate [Compazine] 10 mg PO Q6H PRN 09/17/19 [History] oxyCODONE ER [OxyCONTIN] 10 mg PO Q12H 09/17/19 [History] prednisoLONE acetate [Pred Forte 1% Ophth Susp] 1 drop EYEBOTH QID 09/17/19 [History] Past Medical History HEENT History: Reports: Cataract, Hard of Hearing, Impaired Vision Cardiovascular History: Reports: Afib, High Cholesterol, Hypertension Respiratory History: Reports: Other (See Below) Other Respiratory History: hx pnuemonia Gastrointestinal History: Reports: GERD Other Gastrointestinal History: reflux Genitourinary History: Reports: Prostate Disorder, Renal Calculus Other Genitourinary History: prostate CA Musculoskeletal History: Reports: Back Pain, Chronic, Fracture Other Musculoskeletal History: fx l leg and wrist Neurological History: Reports: Migraines Endocrine/Metabolic History: Reports: Diabetes, Type II, Obesity/BMI 30+ Oncologic (Cancer) History: Reports: Prostate - Infectious Disease History Infectious Disease History: Reports: Chicken Pox, Measles, Mumps, Shingles, Other (See Below) Other Infectious Disease History: Lymes disease - Past Surgical History GI Surgical History: Reports: Colonoscopy Endocrine Surgical History: Reports: None Neurological Surgical History: Reports: None Musculoskeletal Surgical History: Reports: Other (See Below) Other Musculoskeletal Surgeries/Procedures:: wrist surgery Social & Family History - Caffeine Use Caffeine Use: Reports: Coffee - Living Situation & Occupation Living situation: Reports: , Single Social History Comment: Lives in an apartment by himself. A neighbor helps him administer his eyedrops after his eye surgery. The patient states that he wants to be admitted to the hospital ED ROS GENERAL - Review of Systems Review Of Systems: See Below Constitutional: Reports: Chills, Malaise, Weakness, Decreased Appetite, Weight Loss HEENT: Reports: Eye Pain, Other (Planes of poor vision. Just had eye surgery within the last several weeks) Respiratory: Reports: Shortness of Breath (States "I have a tough time getting air today". He admits to dyspnea on exertion and paroxysmal nocturnal dyspnea), Cough, Sputum (Clear) Cardiovascular: Reports: Edema (It's his legs are swollen at the end of the day.) GI/Abdominal: Reports: Abdominal Pain, Distension, Nausea, Vomiting (States he gets sick a lot. Last vomited yesterday. Ate at noon today which consisted of puddings and soup) Musculoskeletal: Reports: No Symptoms Skin: Reports: No Symptoms Neurological: Reports: No Symptoms Psychiatric: Reports: Depression ED EXAM, GENERAL - Physical Exam Exam: See Below Exam Limited By: No Limitations General Appearance: Alert, Anxious Ears: Normal External Exam Nose: Normal Inspection Throat/Mouth: Other (Dry mucous membranes.) Head: Atraumatic ( Increased material around his lips. Denies taking Pepto-Bis mol.), Normocephalic Neck: Normal Inspection Respiratory/Chest: No Respiratory Distress, No Accessory Muscle Use. No: Rales, Wheezing Cardiovascular: Normal Peripheral Pulses, No Murmur GI/Abdominal: Distended, Tender (Upon palpation of suprapubic area), Abnormal Bowel Sounds (High-pitched frequent bowel sounds), Other. No: Mass Extremities: Pedal Edema (Pitting edema to mid garza bilaterally) EKG INTERPRETATION EKG Date: 09/17/19 Time: 15:55 Rhythm: A-Fib Rate (Beats/Min): 100 Course - Vital Signs Text/Narrative:: Initial differential diagnosis includes congestive heart failure, pulmonary embolus, myocardial ischemia, partial small bowel obstruction, ileus, electrolyte abnormality, dehydration, urinary tract infection. 16:55: BNP markedly elevated consistent with congestive heart failure. cT scan shows abdominal and pelvic lymphadenopathy highly suspicious for metastases. Hyper dense nodule in the bladder suspicious for neoplasm Bone lesions also likely prostate cancer bone metastases. There is moderate bilateral pleural effusions and basilar pulmonary edema. WE have no beds available. @ 19:05 I contacted [facility] and pt has been accepted there by Dr. Payan Last Recorded V/S: Last Vital Signs Temp 35.5 C L 09/17/19 14:52 Pulse 100 09/17/19 16:52 Resp 16 09/17/19 17:44 BP 136/58 L 09/17/19 17:44 Pulse Ox 94 L 09/17/19 17:44 - Orders/Labs/Meds Orders: Active Orders 24 hr Category Date Time Status EKG Documentation Completion [RC] ASDIRECTED Care 09/17/19 15:48 Active Nothing Per Oral Diet [DIET] Diet 09/17/19 Dinner Active Abdomen Pelvis w Cont [CT] Stat Exams 09/17/19 Ordered Chest 2V [CR] Stat Exams 09/17/19 15:44 Taken Iopamidol [Isovue-300 (61%)] Med 09/17/19 17:00 Active 100 ml IV . DIRECTED Sodium Chloride 0.9% [Normal Saline] Med 09/17/19 16:45 Active 50 ml IV ASDIRECTED Sodium Chloride 0.9% [Normal Saline] 80 ml Med 09/17/19 17:00 Active IV ASDIRECTED EKG 12 Lead [EK] Urgent Ther 09/17/19 15:44 Ordered Medication Orders Sodium Chloride (Normal Saline) 80 mls @ 3 mls/sec IV ASDIRECTED JEMMA Last Admin: 09/17/19 17:05 Dose: 3 mls/sec Documented by: [email or web address] Iopamidol (Isovue-300 (61%)) 100 ml IV . DIRECTED JEMMA Last Admin: 09/17/19 17:05 Dose: 100 ml Documented by: [employer] Sodium Chloride (Normal Saline) 50 ml IV ASDIRECTED JEMMA Labs: Laboratory Tests 09/17/19 09/17/19 09/17/19 Range/Units 15:49 15:49 15:49 WBC 3.9 L (4.5-11.0) K/uL RBC 3.19 L (4.30-5.90) M/uL Hgb 8.7 L (12.0-15.0) g/dL Hct 27.5 L (40.0-54.0) % MCV 86 (80-98) fL MCH 27 (27-31) pg MCHC 32 (32-36) % Plt Count 74 L (150-400) K/uL PT 13.2 H (9.5-12.0) sec INR 1.24 H (0.80-1.20) Sodium (140-148) mmol/L Potassium (3.6-5.2) mmol/L Chloride (100-108) mmol/L Carbon Dioxide (21-32) mmol/L Anion Gap (5.0-14.0) mmol/L BUN (7-18) mg/dL Creatinine (0.8-1.3) mg/dL Est Cr Clr Drug Dosing mL/min Estimated GFR (MDRD) (>60) Glucose (74-106) mg/dL Lactic Acid (0.4-2.0) mmol/L Calcium (8.5-10.1) mg/dL Total Bilirubin (0.2-1.0) mg/dL AST (15-37) U/L ALT (12-78) U/L Alkaline Phosphatase (46-116) U/L Troponin I 0.061 H* (0.000-0.056) ng/mL NT-Pro-B Natriuret Pep (5-450) pg/mL Total Protein (6.4-8.2) g/dL Albumin (3.4-5.0) g/dL Globulin (2.3-3.5) g/dL Albumin/Globulin Ratio (1.2-2.2) Lipase 117 (73-393) U/L Urine Color (YELLOW) Urine Appearance (CLEAR) Urine pH (5.0-8.0) Ur Specific [place] (1.008-1.030) Urine Protein (NEGATIVE) mg/dL Urine Glucose (UA) (NEGATIVE) mg/dL Urine Ketones (NEGATIVE) mg/dL Urine Occult Blood (NEGATIVE) Urine Nitrite (NEGATIVE) Urine Bilirubin (NEGATIVE) Urine Urobilinogen (0.2-1.0) EU/dL Ur Leukocyte Esterase (NEGATIVE) Urine RBC (0-5) Urine WBC (0-5) Ur Epithelial Cells Amorphous Sediment Urine Bacteria Urine Mucus 09/17/19 09/17/19 09/17/19 Range/Units 15:49 15:49 17:31 WBC (4.5-11.0) K/uL RBC (4.30-5.90) M/uL Hgb (12.0-15.0) g/dL Hct (40.0-54.0) % MCV (80-98) fL MCH (27-31) pg MCHC (32-36) % Plt Count (150-400) K/uL PT (9.5-12.0) sec INR (0.80-1.20) Sodium 137 L (140-148) mmol/L Potassium 3.5 L (3.6-5.2) mmol/L Chloride 101 (100-108) mmol/L Carbon Dioxide 26 (21-32) mmol/L Anion Gap 13.5 (5.0-14.0) mmol/L BUN 14 (7-18) mg/dL Creatinine 1.3 (0.8-1.3) mg/dL Est Cr Clr Drug Dosing 39.42 mL/min Estimated GFR (MDRD) 53 L (>60) Glucose 142 H (74-106) mg/dL Lactic Acid 2.0 (0.4-2.0) mmol/L Calcium 8.8 (8.5-10.1) mg/dL Total Bilirubin 0.6 (0.2-1.0) mg/dL AST 30 D (15-37) U/L ALT 22 (12-78) U/L Alkaline Phosphatase 32 L (46-116) U/L Troponin I (0.000-0.056) ng/mL NT-Pro-B Natriuret Pep 2510 H (5-450) pg/mL Total Protein 5.9 L (6.4-8.2) g/dL Albumin 3.4 (3.4-5.0) g/dL Globulin 2.5 (2.3-3.5) g/dL Albumin/Globulin Ratio 1.4 (1.2-2.2) Lipase (73-393) U/L Urine Color Yellow (YELLOW) Urine Appearance Clear (CLEAR) Urine pH 5.5 (5.0-8.0) Ur Specific [place] 1.010 (1.008-1.030) Urine Protein Negative (NEGATIVE) mg/dL Urine Glucose (UA) Negative (NEGATIVE) mg/dL Urine Ketones Negative (NEGATIVE) mg/dL Urine Occult Blood Trace-intact H (NEGATIVE) Urine Nitrite Negative (NEGATIVE) Urine Bilirubin Negative (NEGATIVE) Urine Urobilinogen 0.2 (0.2-1.0) EU/dL Ur Leukocyte Esterase Negative (NEGATIVE) Urine RBC Not seen (0-5) Urine WBC Not seen (0-5) Ur Epithelial Cells Not seen Amorphous Sediment Not seen Urine Bacteria Not seen Urine Mucus Not seen Meds: Medications Generic Name Dose Route Start Last Admin Trade Name Nano PRN Reason Stop Dose Admin Sodium Chloride 80 mls @ 3 mls/sec 09/17/19 17:00 09/17/19 17:05 Normal Saline IV 3 mls/sec ASDIRECTED JEMMA Administration Iopamidol 100 ml 09/17/19 17:00 09/17/19 17:05 Isovue-300 (61%) IV 100 ml . DIRECTED JEMMA Administration Sodium Chloride 50 ml 09/17/19 16:45 Normal Saline IV ASDIRECTED JEMMA Discontinued Medications Generic Name Dose Route Start Last Admin Trade Name [place] PRN Reason Stop Dose Admin Furosemide 40 mg 09/17/19 16:36 09/17/19 17:16 Lasix IVPUSH 09/17/19 16:37 40 mg ONETIME ONE Administration Sodium Chloride 1,000 mls @ 500 mls/hr 09/17/19 15:50 09/17/19 17:19 Normal Saline IV 09/17/19 17:49 75 mls/hr .BOLUS ONE Administration Departure - Departure Time of Disposition: 19:14 Disposition: DC/[facility] to [facility] Clinical Impression: Prostate cancer metastatic to bone, CHF, Congestive heart failure - Discharge Information Referrals: Nitin Arguello MD [Primary Care Provider] - Forms: ED Department Discharge Sepsis Event Note (ED) - Focused Exam Vital Signs: Vital Signs Temp Pulse Resp BP Pulse Ox 09/17/19 17:44 16 136/58 L 94 L 09/17/19 16:52 100 113/53 L 94 L 09/17/19 16:37 103 H 16 124/61 95 09/17/19 15:35 94 123/22 L 09/17/19 14:52 35.5 C L 96 27 H 142/57 H 95 09/17/19 14:38 35.5 C L 96 27 H 142/57 H 95 - My Orders Last 24 Hours: My Active Orders 09/17/19 Abdomen Pelvis w Cont [CT] Stat 09/17/19 15:44 Chest 2V [CR] Stat EKG 12 Lead [EK] Urgent 09/17/19 15:48 EKG Documentation Completion [RC] ASDIRECTED 09/17/19 16:45 Sodium Chloride 0.9% [Normal Saline] 50 ml IV ASDIRECTED 09/17/19 Dinner Nothing Per Oral Diet [DIET] Iopamidol [Isovue-300 (61%)] 100 ml IV . DIRECTED Sodium Chloride 0.9% [Normal Saline] 80 ml IV ASDIRECTED - Assessment/Plan Last 24 Hours: My Active Orders 09/17/19 Abdomen Pelvis w Cont [CT] Stat 09/17/19 15:44 Chest 2V [CR] Stat EKG 12 Lead [EK] Urgent 09/17/19 15:48 EKG Documentation Completion [RC] ASDIRECTED 09/17/19 16:45 Sodium Chloride 0.9% [Normal Saline] 50 ml IV ASDIRECTED 09/17/19 Dinner Nothing Per Oral Diet [DIET] Iopamidol [Isovue-300 (61%)] 100 ml IV . DIRECTED Sodium Chloride 0.9% [Normal Saline] 80 ml IV ASDIRECTED
[2019-09-17] MEDS ORDERED: Sodium Chloride 0.9% 1,000 ML IV ONE (15:50)
[2019-09-17] MEDS ORDERED: Furosemide 40 MG/4 ML VIAL IVPUSH ONE (16:36)
[2019-09-17] MEDS ORDERED: Sodium Chloride 0.9% 10 ML SDV IV SCH (16:45)
[2019-09-17] MEDS ORDERED: Sodium Chloride 0.9% 80 ML IV SCH (17:00)
[2019-09-17] MEDS ORDERED: Iopamidol 612 MG/ML 100 ML Bottle IV SCH (17:00)
[2019-09-17 19:35] VITALS: BP 159/69; PULSE 119
--- NOTE | 2019-09-18 07:31 | CRLCT ---
Final Report: INDICATION: Abdominal pain. Vomiting. Suspected small-bowel obstruction. Prostate cancer. COMPARISON: 08/06/2018. TECHNIQUE: CT of the abdomen and pelvis with IV contrast. 100 cc Isovue-[id number]. FINDINGS: Moderate bilateral pleural effusions and bibasilar interlobular septal thickening consistent with pulmonary edema. Coronary artery calcifications. Stable left hepatic cysts. Mild pericholecystic fluid in nondistended gallbladder. Spleen, pancreas and adrenal glands are unremarkable. Small to moderate hiatal hernia is similar to prior. No obstructing renal calculus or hydronephrosis. Atherosclerosis of the abdominal aorta which is nonaneurysmal. Hyperdense focus in the bladder is unchanged from prior exam. Urinary bladder is distended. Multiple enlarged retroperitoneal and right iliac chain lymph nodes are suspicious for metastases. Retrocaval lymph node measures 1.7 cm in short axis (series 3, image 61). Right external iliac chain lymph node measures 2.2 cm in short axis (series 2, image 100). Right anterior pelvic sidewall lymph node measures 1.5 cm in short axis (series 3, image 1 and 23). Trace ascites. No evidence of bowel obstruction or inflammation. Degenerative changes in the spine. Lucent lesion in L2 vertebral body is similar to prior examination. Sclerotic focus in the T10 vertebral body is similar to prior exam. Mixed lucent and sclerotic lesion in the left supra-acetabular iliac bone is similar to prior. Degenerative changes in the hips. IMPRESSION: 1. Moderate bilateral pleural effusions and basilar pulmonary edema. Trace ascites. 2. Mild pericholecystic fluid which is nonspecific in the setting of trace ascites, although cholecystitis cannot be excluded. Consider further evaluation with right upper quadrant ultrasound. 3. Abdominal and pelvic lymphadenopathy highly suspicious for metastases, new from prior. 4. Hyperdense nodule in the bladder is again noted, suspicious for neoplasm. 5. Bone lesions, similar to prior, likely prostate cancer bone metastases. Please note that all CT scans at this facility use dose modulation, iterative reconstruction, and/or weight-based dosing when appropriate to reduce radiation dose to as low as reasonably achievable. Dictated by Nitin Up MD @ Sep 17 2019 5:55PM Signed by: Nitin Up MD @09/17/2019 6:07:38 PM (Electronic Signature) MTDD
--- NOTE | 2019-09-18 08:51 | CR ---
CHEST: 2 view CLINICAL HISTORY:SOB COMPARISON:2018 FINDINGS: Heart is enlarged. Pulmonary vascularity is cephalized. There is diffuse interstitial edema with some Nithya B lines B lines. There are small bilateral pleural effusions. This is superimposed over some chronic lung changes. There are atherosclerotic changes in the aorta. Impression: Findings are most consistent with CHF superimposed over COPD.
== END 2019-09-17 19:59 ==
LOC: JP.ED 14:21
DX: I11.0 Hypertensive heart disease with heart failure (principal); I50.9 Heart failure, unspecified; C61 Malignant neoplasm of prostate; C79.51 Secondary malignant neoplasm of bone; I48.91 Unspecified atrial fibrillation; K21.9 Gastro-esophageal reflux disease without esophagitis; E11.9 Type 2 diabetes mellitus without complications; Z79.84 Long term (current) use of oral hypoglycemic drugs; E66.9 Obesity, unspecified; Z68.30 Body mass index [BMI] 30.0-30.9, adult; Z88.8 Allergy status to other drugs, medicaments and biological substances; Z88.2 Allergy status to sulfonamides
CPT/HCPCS: 36415; 71046; 71046-26; 74177; 80053; 81001; 83605; 83690; 83880; 84484; 85027; 85610; 93005; 96361; 96374; 99285-25; J1940; J7030; J7050; Q9967